=== PATIENT | male | born 1990 | race Caucasian/White ===

== ENCOUNTER 2016-04-05 09:32 | Emergency (ER) | payer SELFPAY ==
--- NOTE | 2016-04-05 10:48 | UC ---
Complaint Male HPI - HPI Summary HPI Summary: Back side of both testicles feels sore and painful urination for 3-4 days, no fevers or chills, no blood or discharge same partner for the past 4 months - History of Current Complaint Chief Complaint: UCSTDScreening Stated Complaint: STD TESTING Time Seen by Provider: 04/05/16 10:26 Hx Obtained From: Patient Onset/Duration: Gradual Onset, Lasting Days - 4, Still Present Timing: Constant Severity Initially: Mild Severity Currently: Mild Pain Intensity: 2 Pain Scale Used: 0-10 Numeric Location: Penis Character: Constant Pressure Aggravating Factor(s): Voiding Alleviating Factor(s): Nothing Associated Signs And Symptoms: Positive: Dysuria Prior STD Hx: none - Allergies/Home Medications Allergies/Adverse Reactions: Allergies Allergy/AdvReac Type Severity Reaction Status Date / Time No Known Allergies Allergy Verified 08/09/15 15:48 PMH/Surg Hx/FS Hx/Imm Hx Previously Healthy: Yes - Surgical History Surgical History: None - Family History Known Family History: Positive: None - Social History Occupation: Employed Full-time - construction Lives: With Family Alcohol Use: Weekly Substance Use Type: None Smoking Status (MU): Never Smoked Tobacco Review of Systems Constitutional: Negative Skin: Negative Eyes: Negative ENT: Negative Respiratory: Negative Cardiovascular: Negative Gastrointestinal: Negative Genitourinary: Dysuria Motor: Negative Neurovascular: Negative Musculoskeletal: Negative Neurological: Negative Psychological: Negative All Other Systems Reviewed And Are Negative: Yes Physical Exam Triage Information Reviewed: Yes Appearance: Well-Appearing, No Pain Distress, Well-Nourished Vital Signs: Initial Vital Signs Temp 99.3 F 04/05/16 09:49 Pulse 57 04/05/16 09:49 Resp 18 04/05/16 09:49 BP 147/90 04/05/16 09:49 Pulse Ox 100 04/05/16 09:49 Vital Signs Reviewed: Yes Eye Exam: Normal Eyes: Positive: Conjunctiva Clear ENT Exam: Normal ENT: Positive: Normal ENT inspection, Hearing grossly normal. Negative: Nasal congestion, Nasal drainage, Trismus, Muffled/hoarse voice Neck exam: Normal Neck: Positive: Supple, Nontender, No Lymphadenopathy Respiratory Exam: Normal Respiratory: Positive: Chest non-tender, Lungs clear, Normal breath sounds, No respiratory distress, No accessory muscle use Cardiovascular Exam: Normal Cardiovascular: Positive: RRR, No Murmur, Pulses Normal, Brisk Capillary Refill Abdominal Exam: Normal Abdomen Description: Positive: Nontender, No Organomegaly, Soft Bowel Sounds: Positive: Present Musculoskeletal Exam: Normal Musculoskeletal: Positive: Strength Intact, ROM Intact, No Edema Neurological Exam: Normal Neurological: Positive: Alert, Muscle Tone Normal Psychological Exam: Normal Skin Exam: Normal - Additional Comments both testicles tender along epidy. no lumps or swelling no rashes or open area, not otherwise painful to palpation Complaint Male Course/Dx - Course Course Of Treatment: sti screening, treat for epidid. [facility] - Differential Dx/Diagnosis Differential Diagnosis/HQI/PQRI: Epididymitis, Pyelonephritis, Testicular Torsion, Trauma Provider Diagnoses: Epididymitis, dysuria Discharge - Discharge Plan Condition: Stable Disposition: HOME Prescriptions: DOXYcycline CAP(*) [DOXYcycline 100MG CAP(*)] 100 mg PO BID #20 cap Patient Education Materials: Epididymitis (ED), Dysuria (ED), DASH Eating Plan (ED), Hypertension (ED) Referrals: [facility] [Outside] - 1 Week No Primary Care Phys,NOPCP [Primary Care Provider] - Additional Instructions: [facility] also an excellent resource for treatment for both men and women [phone]
[2016-04-05 11:15] VITALS: BP 130/81
[2016-04-07 11:51] LABS: Syphilis Index < 0.1 Index
== END 2016-04-05 11:11 | disposition home or self-care (01) ==
LOC: UCEAST 09:32
DX: N45.1 Epididymitis (principal); R30.0 Dysuria
CPT/HCPCS: 36415; 81002; 86592; 86703; 86706; 86803; 87340; 87491; 87591; 99212; G0463

== ENCOUNTER 2017-02-20 07:16 | Emergency (ER) | payer OTHER ==
[2017-02-20 07:36] VITALS: BP 147/79
--- NOTE | 2017-02-20 07:57 | UC ---
Respiratory Complaint HPI - HPI Summary HPI Summary: 26 yo WM c/o nasal congestion and cough x 3 weeks that is worsening. Mostly dry cough but now moving into chest. Denies f/c but worried about duration and severity of sx. - History of Current Complaint Chief Complaint: UCGeneralIllness Stated Complaint: CONGESTED, SORE THROAT Time Seen by Provider: 02/20/17 07:44 Hx Obtained From: Patient Onset/Duration: Gradual Onset, Lasting Weeks Severity Initially: Moderate Severity Currently: Severe Associated Signs And Symptoms: Positive: Negative. Negative: Dyspnea, Fever, Chills, Wheezing, Hemoptysis, Dizziness - Allergies/Home Medications Allergies/Adverse Reactions: Allergies Allergy/AdvReac Type Severity Reaction Status Date / Time No Known Allergies Allergy Verified 02/20/17 07:36 Home Medications: Home Medications Guaifenesin [Mucinex Maximum Strength] 1,200 mg PO DAILY PRN 02/20/17 [History Confirmed 02/20/17] [id number] [Nyquil Severe Cold/Flu 5-6.25-10-325 mg/15Ml] 1 liq PO DAILY 02/20/17 [History Confirmed 02/20/17] PMH/Surg Hx/FS Hx/Imm Hx - Surgical History Surgical History: None - Family History Known Family History: Positive: None - Social History Alcohol Use: Occasionally Substance Use Type: None Smoking Status (MU): Never Smoked Tobacco - Immunization History Most Recent Influenza Vaccination: declines Review of Systems Constitutional: Negative Skin: Negative Eyes: Negative ENT: Sore Throat, Nasal Discharge, Sinus Congestion, Sinus Pain/Tenderness Respiratory: Cough Cardiovascular: Negative Gastrointestinal: Negative Genitourinary: Negative Motor: Negative Neurovascular: Negative Musculoskeletal: Negative Neurological: Negative Psychological: Negative All Other Systems Reviewed And Are Negative: Yes Physical Exam Triage Information Reviewed: Yes Vital Signs: Initial Vital Signs Temp 37.0 C 02/20/17 07:32 Pulse 86 02/20/17 07:32 Resp 20 02/20/17 07:32 BP 147/79 02/20/17 07:32 Pulse Ox 98 02/20/17 07:32 Eye Exam: Normal ENT Exam: Normal Dental Exam: Normal Neck exam: Normal Neck: Positive: 1 Respiratory Exam: Normal Respiratory: Positive: No respiratory distress, Rhonchi - MILD with cough. Negative: Decreased breath sounds, Crackles, Stridor, Wheezing Cardiovascular: Positive: RRR Abdominal Exam: Normal Musculoskeletal Exam: Normal Neurological Exam: Normal Psychological Exam: Normal Skin Exam: Normal UC Diagnostic Evaluation - Laboratory O2 Sat by Pulse Oximetry: 98 Respiratory Course/Dx - Differential Dx/Diagnosis Provider Diagnoses: bronchitis Discharge - Discharge Plan Condition: Stable Disposition: HOME Prescriptions: Azithromyxin MYLENE (NF) [Z-Mylene (Zithromax) 250 mg tabs #6] 2 tab PO .TODAY, THEN 1 DAILY #6 tab Fluticasone NASAL SPRAY 50MCG* [Flonase NASAL SPRAY 50MCG*] 2 spray BOTH NARES DAILY 5 Days #1 btl Pseudoephedrine HCL ER TAB* [Sudafed 12 Hour*] 120 mg PO BID 5 Days #10 tab.er Patient Education Materials: Acute Bronchitis (ED), Viral Syndrome (ED) Referrals: No Primary Care Phys,NOPCP [Primary Care Provider] - Additional Instructions: as tolerated
== END 2017-02-20 07:55 | disposition home or self-care (01) ==
LOC: UCEAST 07:16
DX: J40 Bronchitis, not specified as acute or chronic (principal); Z72.89 Other problems related to lifestyle
CPT/HCPCS: 99212; G0463